=== PATIENT | female | born 1955 | race Caucasian/White ===

== ENCOUNTER 2023-03-04 21:17 | Outpatient (CLI) | payer MEDICARE, MEDICAID | END 2023-03-04 21:18 | disposition EMS.NT | LOC: EMS 21:17 | DX: R68.83 Chills (without fever) (principal); R11.0 Nausea; R19.7 Diarrhea, unspecified ==

== ENCOUNTER 2023-03-11 10:31 | Emergency (ER) | payer MEDICARE, MEDICAID ==
--- NOTE | 2023-03-11 12:36 | ED Physician Documentation ---
PD HPI LOWER EXT INJURY - Stated complaint Stated Complaint: LT LEG WOUND - Chief complaint Chief Complaint: Ext Problem - History obtained from History obtained from: Patient - History of Present Illness PD HPI LOW EXT INJURY LOCATION: Left, Lower leg, Calf Type of injury: No: Fall, Twist Where injury occurred: Home Timing - onset: How many days ago (4-5 days of increased pain an dswelling at areas of chronic skin wounds. Seen by Wound care with dressings and topical treatments, though she states some of the topicals had increased the sores, as does tape/wraps. She has had significant increase in swelling and weeping at the wounds.) Timing - details: Gradual onset (has had the skin wounds for long time, with now abrupt worse 5 days ago.) Improved by: No: Rest Worsened by: Moving, Palpating Associated symptoms: Swelling, Discolored. No: Weakness, Numbness Recently seen: Clinic ([facility], couple days after it was worsening, and Rx Keflex. Patient states no cultures/swabs obtained.) Review of Systems Constitutional: reports: Myalgias. denies: Fever, Chills GI: denies: Nausea, Vomiting, Diarrhea PD PAST MEDICAL HISTORY - Past Medical History Past Medical History: Yes Musculoskeletal: Other (lymphedema in legs, more left than right chroncially. ) - Present Medications Home Medications: Ambulatory Orders Medication Instructions Recorded Confirmed Doxycycline Hyclate 100 mg PO BID 7 Days #14 cap 03/11/23 HYDROcod/ACETAM 5/325 [Luther 5/325] 1 ea PO Q6H PRN #20 tablet 03/11/23 - Allergies Allergies/Adverse Reactions: Allergies Allergy/AdvReac Type Severity Reaction Status Date / Time codeine Allergy Hives Verified 03/11/23 10:51 PD ED PE NORMAL - Vitals Vital signs reviewed: Yes - General General: Alert and oriented X 3, Well developed/nourished - Derm Derm: Normal color - Extremities Extremities: Other (both lower legs with edema, left much more than right. Tight calf tissue with pitting edema, skin breakdown anterior and some in calf posterior but not to fatty tissue. There is clear serous weeping of fluid freshly from anterior wound. Culture botained. Very tender calf and wounds. ) Results - Vitals Vitals: Vital Signs - 24 hr 05/29/23 05/29/23 10:51 15:15 Temperature 37 C Heart Rate 70 68 Respiratory 18 18 Rate Blood Pressure 118/65 120/64 O2 Saturation 97 98 Oxygen O2 Source Room air - Labs Labs: Microbiology 03/11/23 13:12 Wound Culture - Preliminary Leg - Left - Rads (name of study) Duplex left leg Relevant Findings:: Prelim report reviewed, Other (U/S tech verbal report of no DVT. ) PD Medical Decision Making - ED course Complexity details: reviewed results (has pain/tight/swelling in calf. Conside DVT even though on DOAC. U/S obtained and no DVT. No fluid collection in calf though limited due to tenderness, but no obvious abscess. ), considered differential (has worse swelling and pain, weeping at chronic skin sore/breakdown area of calf. Not improving with Keflex the past 3 days. I think that would not have been my first choic antibiotic for her and can add Doxy for now. Culture would have been good to guide treatment. swabbed here now.), d/w patient Departure - Departure Disposition: 01 Home, Self Care Clinical Impression: Left leg cellulitis, Lymphedema Condition: Stable Record reviewed to determine appropriate education?: Yes Instructions: ED Infec Skin Cellulitis Prescriptions: Doxycycline Hyclate 100 mg PO BID 7 Days #14 cap HYDROcod/ACETAM 5/325 [Luther 5/325] 1 ea PO Q6H PRN #20 tablet PRN Reason: Pain Comments: We did a culture of the fluid weeping from the leg. Hopefully this will give us the results on the bacteria that is causing the infection and be able to narrow down the antibiotic choice better. At this point I would have you continue the cephalexin and add doxycycline to it for now. We did an ultrasound of the leg which did not show any blood clots. Obviously there is a lot of swelling and edema related to the infection. Elevate rest and wrap on the leg to help with some of the swelling. Continue cleansing the wounds 2-3 times daily and applying clean dressing. Tylenol every 4-6 hours as needed for pain. Add hydrocodone/acetaminophen if needed for worse pain. I sent prescriptions down to [email or web address] in [place]. My narcotic instructions. Continue follow-up with your primary cares and wound care etc. Discharge Date/Time: 03/11/23 15:17
[2023-03-11] MEDS ORDERED: DOXYCYCLINE 100 MG TABLET PO STA (13:15)
[2023-03-11 15:18] VITALS: BP 120/64
--- NOTE | 2023-03-11 15:37 | Ultrasound Report ---
PROCEDURE: Duplex Ext Veins Left INDICATIONS: increased swelling/pain; h/olympphedema TECHNIQUE: Real-time imaging, as well as color and pulse Doppler interrogation, were performed of the lower extr emity deep veins from the inguinal ligament to the popliteal fossa. COMPARISON: None. FINDINGS: The deep veins are normally compressible, and free of intraluminal thrombus. Color and pu lse Doppler demonstrate normal phasic intraluminal flow. There is normal augmentation response to di stal compression maneuver. IMPRESSION: 1. No visible left lower extremity DVT. 2. Preliminary results given by the school office manager to the ordering provider immediately following the st udy. Reviewed by: Kathy Ramos MD on 03/11/2023 2:36 PM POLLO Approved by: Kathy Ramos MD on 03/11/2023 2:36 PM POLLO Station ID: [id number]
== END 2023-03-11 15:17 | disposition home or self-care (01) ==
LOC: ED 10:31
DX: L03.116 Cellulitis of left lower limb (principal); I89.0 Lymphedema, not elsewhere classified
CPT/HCPCS: 87070; 87077; 87181; 87205; 93971; 99283; 99284; A9270